=== PATIENT | female | born 2005 | race Caucasian/White ===

== ENCOUNTER 2024-03-10 16:32 | Emergency (ER) | payer OTHER, SELFPAY ==
[2024-03-10 16:41] VITALS: BP 138/104; PULSE 77; RESP 16; TEMP 36.9; O2SAT 99; BMI 24.1
--- NOTE | 2024-03-10 18:02 | ED_ITS ---
HPI - General Adult General Date Seen: 03/10/24 Chief complaint: Headache/Migraine Stated complaint: Sinusitis headache pain Time Seen by Provider: 03/10/24 16:35 History of Present Illness HPI narrative: This is a pleasant 18-year-old female who is a student at [employer]. She has a history of chronic sinusitis dating back several months that have led to multiple episodes of headaches. She says she has had workups with her doctors in [place] including an ENT doctor and a couple of scans. She is managing her sinusitis over the long-term on allergy medications including Flonase, cetirizine. She has also required rounds of antibiotics and she think she was on an antibiotic in December. She does not remember the name of the antibiotic but was apparently a fairly large, ?horse pill? that she had to take twice a day (Augmentin? ). For the past week or so she has had worsening pain in her left forehead and behind her left eye. Along with this she has had increasing congestion, a bit of a cough that is productive of some E yellowish sticky phlegm. No shortness of breath. No fever. No visual disturbance. No stiff neck. No rash. No numbness or tingling in arms or legs. No head trauma. She has been trying to manage her headaches with ibuprofen but sometimes they fluctuate and get worse. A few hours ago she had a pretty severe headache that was not responding to ibuprofen so she came here to the ER. Note she is here in the ER the headaches actually quite a bit better and she does not currently need any additional and she has a at the moment. Related Data Home Medications ?Medication ?Instructions ?Recorded ?Confirmed azelastine 137 mcg-fluticasone 50 1 spray intranasal BID 03/10/24 03/10/24 mcg/spray nasal spray cetirizine 10 mg tablet (24Hour 10 mg PO DAILY PRN 03/10/24 03/10/24 Allergy) drospirenone 3 mg-estetrol 14.2 mg See Rx Instructions PO .COMPLEX 03/10/24 03/10/24 (28) tablet fluticasone propionate 50 2 spray intranasal DAILY PRN 03/10/24 03/10/24 mcg/actuation nasal spray,suspension (24 Hour Allergy Relief) Previous Rx's ?Medication ?Instructions ?Recorded doxycycline hyclate 100 mg tablet 100 mg PO BID 10 days #20 tabs 03/10/24 doxycycline hyclate 100 mg tablet 100 mg PO BID 10 days #20 tabs 03/10/24 hydrocodone 5 mg-acetaminophen 325 1 tab PO Q6H PRN pain #10 tabs 03/10/24 mg tablet hydrocodone 5 mg-acetaminophen 325 1 tab PO Q6H PRN pain #10 tabs 03/10/24 mg tablet Allergies Allergy/AdvReac Type Severity Reaction Status Date / Time No Known Drug Allergies Allergy Verified 03/10/24 16:38 Exam Narrative: Exam Narrative: Constitutional: Appears well-developed and well-nourished. Alert. Conversant. Non toxic. HENT: Head: Atraumatic. No depressed skull fracture, Raccoon Eyes, Santiago's sign, or hemotympanum. Face normal. TMs normal Nose: Externally normal. There does appear to be submucosal edema inside both nostrils. Small amount of clear/yellowish rhinorrhea. Mouth/Throat: Oral mucosa is clear and moist. no trismus. Tonsils are asymmetric and left tonsil is larger than the right. She says this is a chronic finding for her and is apparently related to her chronic sinus drainage. No tonsillar erythema, or exudate. Eyes: Conjunctivae normal. EOM normal. Pupils equal, round, and reactive to light. No scleral icterus. Neck: Normal range of motion. Neck supple. No tracheal deviation present. Cardiovascular: Normal rate, regular rhythm. No gallop. No friction rub. No murmur heard. Symmetric radial artery pulses Pulmonary/Chest: Effort normal. No stridor. No respiratory distress. No wheezes. No rales. No rhonchi . No tenderness. Musculoskeletal: RUE: Normal range of motion. No tenderness. No deformity LUE: Normal range of motion. No tenderness. No deformity RLE: Normal range of motion. No edema. No tenderness. No deformity LLE: Normal range of motion. No edema. No tenderness. No deformity Lymph: No cervical adenopathy. Neurological: Alert and oriented to person, place, and time. Normal strength. CN II-VII intact. No sensory deficit. GCS eye subscore is 4. GCS verbal subscore is 5. GCS motor subscore is 6. Normal coordination Skin: Skin is warm and dry. No rash noted. No pallor. Normal capillary refill. Psychiatric: Normal mood. Normal affect. Const: Vital Signs, click to edit/add: Vital Signs - 24 hr 03/10/24 16:41 Temperature 98.4 F Pulse Rate [Pulse Oximeter] 77 Respiratory Rate 16 Blood Pressure [Ri ght Upper Arm] 138/104 H Pulse Oximetry 99 Oxygen Delivery Me thod Room Air Course Vital Signs Vital signs: Initial Vital Signs Temperature 98.4 F 03/10/24 16:41 Temperature Source Temporal Artery Scan 03/10/24 16:41 Pulse Rate 77 03/10/24 16:41 Respiratory Rate 16 03/10/24 16:41 Blood Pressure 138/104 H 03/10/24 16:41 Blood Pressure Mean 115 H 03/10/24 16:41 Blood Pressure Position High-Fowlers 03/10/24 16:41 Pulse Oximetry 99 03/10/24 16:41 Oxygen Delivery Method Room Air 03/10/24 16:41 Vital Signs Temperature 98.4 F 03/10/24 16:41 Pulse Rate 77 03/10/24 16:41 Respiratory Rate 16 03/10/24 16:41 Blood Pressure 138/104 H 03/10/24 16:41 Pulse Oximetry 99 03/10/24 16:41 Oxygen Delivery Method Room Air 03/10/24 16:41 Temperature 98.4 F 03/10/24 16:41 Pulse Rate 77 03/10/24 16:41 Respiratory Rate 16 03/10/24 16:41 Blood Pressure 138/104 H 03/10/24 16:41 Pulse Oximetry 99 03/10/24 16:41 Oxygen Delivery Method Room Air 03/10/24 16:41 Medical Decision Making [facility] Narrative Medical decision making narrative: Ths patient presents with a headache. A broad differential diagnosis was considered including tension, migraine, analgesic rebound, occipital neuralgia, etc. Other less common but serious causes considered included meningitis, encephalitis, subarachnoid bleed, stroke, tumor, etc. This patient presented with signs and symptoms of sinusitis. Based on history and exam, I feel the cause of sinusitis is most likely bacterial. Antibiotics are indicated due to acute worsening of symptoms in the setting of long-term chronic sinusitis. Evaluation today did not show signs of intracranial complication of sinusitis, facial cellulitis or fungal sinusitis. Patient has normal mental status, no proptosis, periorbital edema, CN palsy. No immunosuprression. The patient was given instructions to follow up with primary care in 3-5 days. Instructions for symptomatic care were given. No advanced imaging is indicated, nor is CT/lumbar puncture for SAH. Patients questions were answered and they feel improved after above interventions in ED. Support reilly outpatient management is therefore indicated. Headache precautions given for home. Discharge Plan Discharge Clinical Impression: Headache, Sinusitis Patient Disposition: Home, Self-Care Condition: Stable Instructions: Sinusitis (ED), Acute Headache (DC) Additional Instructions: As we discussed, use caution with a prescription pain killer ([place]) because it can cause dizziness, drowsiness, constipation, and can be addictive. To treat your headache use ibuprofen or Tylenol 1st and use the [place] if needed for uncontrolled pain. Start the antibiotic to treat for sinus infection. You should start on probiotics or yogurt to help prevent diarrhea. If you have worsening symptoms, high fever, stiffness in your neck, nausea and vomiting, blurry vision or double vision, or any other problems, please come back to the ER right away to be recheck Please recheck with your regular doctor or student health within 3-5 days Prescriptions: New hydrocodone-acetaminophen 5-325 mg tablet 1 tab PO Q6H PRN (Reason: pain) Qty: 10 0RF doxycycline hyclate 100 mg tablet 100 mg PO BID 10 Days Qty: 20 0RF doxycycline hyclate 100 mg tablet 100 mg PO BID 10 Days Qty: 20 0RF hydrocodone-acetaminophen 5-325 mg tablet 1 tab PO Q6H PRN (Reason: pain) Qty: 10 0RF No Action azelastine-fluticasone 137-50 mcg/spray spray,non-aerosol 1 spray intranasal BID Rx Instructions: administer into each nostril drospirenone-estetrol 3 mg- 14.2 mg (28) tablet See Rx Instructions .ROUTE .COMPLEX Rx Instructions: take 1-PINK tablet once daily for 24 days/days 1-24 of cycle; take 1-WHITE tablet once daily for 4 days/days 25-28 of cycle. cetirizine [24Hour Allergy] 10 mg tablet 10 mg PO DAILY PRN fluticasone propionate [24 Hour Allergy Relief] 50 mcg/actuation spray,suspension 2 spray intranasal DAILY PRN Rx Instructions: administer into each nostril Stand Alone Forms: [facility] Info Instructions
== END 2024-03-10 17:53 | disposition home or self-care (01) ==
LOC: ED 17:24
PROVIDERS: Emergency Provider Emergency Medicine
DX: R51.9 Headache, unspecified (principal); J32.9 Chronic sinusitis, unspecified
CPT/HCPCS: 99282; 99284